=== PATIENT | male | born 1970 | race Two or more races ===

== ENCOUNTER 2017-02-07 05:57 | Emergency (ER) | payer MEDICAID ==
[~2017-02-07] VITALS: Ht 167.6 cm; Wt 58.0 kg
[2017-02-07 07:18] LABS: BASOPHILS % 0.9 % (0.0-2.0); DIFFERENTIAL COMMENT 0; EOSINOPHILS % 4.6 % (0.0-5.0); HEMATOCRIT. 31.3 % (42.0-52.0); HEMOGLOBIN. 9.9 g/dL (14.0-18.0); MEAN CORPUSCULAR HEMOGLOBIN 23.8 pg (28.0-32.0); MEAN CORPUSCULAR HGB CONC 31.7 g/dL (31.0-37.0); MEAN CORPUSCULAR VOLUME 75.2 fL (80.0-94.0); MEAN PLATELET VOLUME 6.3 fl (7.4-10.4); MONOCYTES % 7.8 % (2.0-8.0); NEUTROPHILS % 75.7 % (40.0-76.0); PLATELET 642 x1000/uL (130-400); RED BLOOD CELL COUNT 4.16 mill/uL (4.7-6.1); RED CELL DISTRIBUTION WIDTH 17.8 % (11.6-14.6); WHITE BLOOD COUNT 5.6 x1000/uL (4.5-11.0)
[2017-02-07 07:25] LABS: CHLORIDE 101 mEq/L (98-107); INDEX HEMOLYSI 2 (1-3); INDEX ICTERIC 1 (1-4); INDEX LIPEMIC 1 (1-3)
[2017-02-07 07:33] LABS: ALANINE AMINOTRANSFERASE 18 IU/L (13-61); ALBUMIN 3.5 g/dL (3.4-5.0); ANION GAP 13; CALCIUM 8.9 mg/dL (8.5-10.1); CARBON DIOXIDE 25 mEq/L (21-32); UREA NITROGEN BLOOD 14 mg/dL (7-21); eGFR > 60 mL/min (>60)
[2017-02-07 10:03] VITALS: BP 116/79
== END 2017-02-07 11:58 | disposition home or self-care (01) ==
LOC: ER 08:43
DX: N99.522 Malfunction of incontinent external stoma of urinary tract (principal); C18.9 Malignant neoplasm of colon, unspecified
CPT/HCPCS: 36415; 74176; 80053; 85025; 99285

== ENCOUNTER 2017-02-16 13:04 | Inpatient (IN) | payer MEDICAID, OTHER ==
[~2017-02-16] VITALS: Ht 167.6 cm; Wt 59.9 kg
[2017-02-16] MEDS ORDERED: OXYC-23 PO (13:41)
[2017-02-16] MEDS ORDERED: SULF1TAB48 PO (13:41)
[2017-02-16] MEDS ORDERED: ONDA8TAB9 PO (13:41)
[2017-02-16] MEDS ORDERED: AMOX200S10 PO (13:41)
[2017-02-16] MEDS ORDERED: SODIUM CHLORIDE 0.9% 1000ML BAG (SEPSIS BOLUS) IV ONE (14:30)
[2017-02-16 15:16] LABS: BASOPHILS % 0.8 % (0.0-2.0); DIFFERENTIAL COMMENT 0; EOSINOPHILS % 3.4 % (0.0-5.0); HEMATOCRIT. 29.8 % (42.0-52.0); HEMOGLOBIN. 9.4 g/dL (14.0-18.0); LYMPHOCYTES % 10.2 % (20.0-50.0); MEAN CORPUSCULAR HEMOGLOBIN 23.5 pg (28.0-32.0); MEAN CORPUSCULAR HGB CONC 31.6 g/dL (31.0-37.0); MEAN CORPUSCULAR VOLUME 74.5 fL (80.0-94.0); MEAN PLATELET VOLUME 6.4 fl (7.4-10.4); MONOCYTES % 6.8 % (2.0-8.0); NEUTROPHILS % 78.8 % (40.0-76.0); PLATELET 558 x1000/uL (130-400); RED CELL DISTRIBUTION WIDTH 18.2 % (11.6-14.6); WHITE BLOOD COUNT 5.7 x1000/uL (4.5-11.0)
[2017-02-16 15:19] LABS: CHLORIDE 100 mEq/L (98-107); INDEX HEMOLYSI 1 (1-3); INDEX ICTERIC 1 (1-4); INDEX LIPEMIC 1 (1-3)
[2017-02-16 15:21] LABS: INR 1.1; PARTIAL THROMBOPLASTIN TIME 27.8 sec (24.0-34.0); PROTHROMBIN TIME 11.4 sec
[2017-02-16 15:22] LABS: ALBUMIN 3.2 g/dL (3.4-5.0); ANION GAP 10; CALCIUM 8.8 mg/dL (8.5-10.1); CARBON DIOXIDE 28 mEq/L (21-32)
[2017-02-16 15:28] LABS: ALANINE AMINOTRANSFERASE 13 IU/L (13-61); UREA NITROGEN BLOOD 10 mg/dL (7-21); eGFR > 60 mL/min (>60)
[2017-02-16 15:31] LABS: CLARITY URINE TURBID (CLEAR); COLOR URINE YELLOW (YELLOW); GLUCOSE URINE NEGATIVE (NEGATIVE); KETONES URINE NEGATIVE (NEGATIVE); LEUKOCYTE ESTERASE URINE NEGATIVE (NEGATIVE); NITRITE URINE NEGATIVE (NEGATIVE); OCCULT BLOOD URINE NEGATIVE (NEGATIVE); PH URINE 5.5 (4.5-8.0); PROTEIN URINE TRACE (NEGATIVE); SPECIFIC GRAVITY URINE 1.033 (1.005-1.030)
[2017-02-16 16:13] LABS: MUCUS URINE 1+ /lpf (NONE/TRACE); RBC URINE 0-2 /hpf (0-2); WBC URINE 0-2 /hpf (0-2)
[2017-02-16 16:14] LABS: CALCIUM OXALATE CRYSTALS URINE 2+ /lpf; URIC ACID CRYSTALS URINE 2+ /lpf
[2017-02-16 16:15] LABS: BACTERIA URINE 2+
[2017-02-16 16:16] LABS: SQUAMOUS EPITHELIAL CELL URINE RARE /lpf (RARE/1+)
[2017-02-16] MEDS ORDERED: MORPHINE SULFATE 4 MG/ML CPJ (NOT FOR IM USE) IV ONE (17:30)
[2017-02-16] MEDS ORDERED: ONDANSETRON HCL 4MG/2ML VIAL IV ONE (17:30)
[2017-02-16 21:05] VITALS: BP 102/71
[2017-02-16] MEDS ORDERED: IPRATROPIUM/ALBUTEROL 0.5-3(2.5)MG/3ML NEB INH PRN (22:15)
[2017-02-16] MEDS ORDERED: LORAZEPAM 2MG/ML CPJ IV PRN (22:15)
[2017-02-16] MEDS ORDERED: ACETAMINOPHEN 650MG SUPP PR PRN (22:15)
[2017-02-16] MEDS ORDERED: DIPHENHYDRAMINE 50MG/ML VIAL IV PRN (22:15)
[2017-02-16] MEDS: DEXT 5%/0.45% NACL 1000ML 1,000 ML IV SCH (22:47)
[2017-02-16] MEDS: ENOXAPARIN 40MG/0.4ML SYR SUBCUT SCH (22:48)
[2017-02-16] MEDS ORDERED: ONDANSETRON HCL 4MG/2ML VIAL IV PRN (23:00)
[2017-02-16] MEDS: MORPHINE SULFATE 2 MG/ML CPJ (NOT FOR IM USE) IV PRN (23:05)
[2017-02-17] VITALS: BP 98/68
[2017-02-17 04:00] VITALS: BP 106/76
[2017-02-17] MEDS: MORPHINE SULFATE 2 MG/ML CPJ (NOT FOR IM USE) IV PRN (05:10)
[2017-02-17 08:00] VITALS: BP 108/69
[2017-02-17] MEDS: DEXT 5%/0.45% NACL 1000ML 1,000 ML IV SCH (08:07)
[2017-02-17] MEDS: HYDROMORPHONE HCL/PF 2MG/ML CPJ IV PRN ×3 (09:47→20:26)
[2017-02-17] MEDS: PANTOPRAZOLE SODIUM 40 MG/VIAL IV SCH (09:47)
[2017-02-17] MEDS ORDERED: DIATR MEGLU/DIATRIZOATE SOLN 30ML ONE (14:37)
[2017-02-17 16:00] VITALS: BP 111/76
[2017-02-17 20:00] VITALS: BP 99/76
[2017-02-17 20:19] VITALS: BP 97/67
[2017-02-17] MEDS: ENOXAPARIN 40MG/0.4ML SYR SUBCUT SCH (21:00)
[2017-02-18] VITALS: BP 100/62
[2017-02-18] MEDS: HYDROMORPHONE HCL/PF 2MG/ML CPJ IV PRN ×2 (02:23→08:26)
[2017-02-18] MEDS: DEXT 5%/0.45% NACL 1000ML 1,000 ML IV SCH (03:14)
[2017-02-18 04:00] VITALS: BP 114/77
[2017-02-18 08:00] VITALS: BP 114/76
[2017-02-18] MEDS: PANTOPRAZOLE SODIUM 40 MG/VIAL IV SCH (08:26)
[2017-02-18 12:00] VITALS: BP 99/62
[2017-02-18 13:35] VITALS: BP 99/62
== END 2017-02-18 14:50 | disposition home or self-care (01) | DRG 247 ==
LOC: ER 14:27 → 7WST 18:05
PROVIDERS: ADMIT Internal Medicine; ATTEND Internal Medicine
DX: K56.60 Unspecified intestinal obstruction (principal); E44.1 Mild protein-calorie malnutrition; E87.1 Hypo-osmolality and hyponatremia; K56.7 Ileus, unspecified; N13.30 Unspecified hydronephrosis; E86.0 Dehydration; D63.8 Anemia in other chronic diseases classified elsewhere; Z93.3 Colostomy status; Z93.6 Other artificial openings of urinary tract status; Z68.21 Body mass index [BMI] 21.0-21.9, adult; Z85.038 Personal history of other malignant neoplasm of large intestine
CPT/HCPCS: 36415; 43753; 71010; 74000; 74176; 74250; 80053; 81001; 83605; 85025; 85610; 85730; 87040; 87086; 93005; 96361; 96374; 96375; 99285; C9113; J1170; J1650; J2270; J2405; J3490; J7030; Q9963

== ENCOUNTER 2017-03-06 10:12 | Inpatient (IN) | payer MEDICAID, OTHER ==
[~2017-03-06] VITALS: Ht 167.6 cm; Wt 59.0 kg
[~2017-03-06 10:12] MED LIST: AMOX200S10 PO; ONDA8TAB9 PO; OXYC-23 PO; SULF1TAB48 PO
[2017-03-06] MEDS ORDERED: SODIUM CHLORIDE 0.9% 1,000 ML IV ONE (10:37)
[2017-03-06] MEDS ORDERED: ONDANSETRON HCL 4MG/2ML VIAL IV STA (10:37)
[2017-03-06] MEDS ORDERED: MORPHINE SULFATE 4 MG/ML CPJ (NOT FOR IM USE) IV STA (10:37)
[2017-03-06 11:07] LABS: GLUCOSE URINE TRACE (NEGATIVE); KETONES URINE TRACE (NEGATIVE); LEUKOCYTE ESTERASE URINE 2+ (NEGATIVE); NITRITE URINE NEGATIVE (NEGATIVE); OCCULT BLOOD URINE TRACE (NEGATIVE); PROTEIN URINE 1+ (NEGATIVE); SPECIFIC GRAVITY URINE 1.025 (1.005-1.030); UROBILINOGEN URINE 0.2 E.U./dL (0.2-1.0)
[2017-03-06 11:08] LABS: CLARITY URINE CLOUDY (CLEAR); COLOR URINE DARK YELLOW (YELLOW)
[2017-03-06] MEDS ORDERED: LEVOFLOXACIN 750MG PREMIX 150 ML IV ONE (11:45)
[2017-03-06 12:00] LABS: HEMATOCRIT. 25.1 % (42.0-52.0); HEMOGLOBIN. 8.1 g/dL (14.0-18.0); MEAN CORPUSCULAR HEMOGLOBIN 23.3 pg (28.0-32.0); MEAN CORPUSCULAR VOLUME 72.5 fL (80.0-94.0); MEAN PLATELET VOLUME 7.4 fl (7.4-10.4); PLATELET 357 x1000/uL (130-400); RED BLOOD CELL COUNT 3.47 mill/uL (4.7-6.1); RED CELL DISTRIBUTION WIDTH 18.6 % (11.6-14.6)
[2017-03-06 12:06] LABS: INR 1.2; PARTIAL THROMBOPLASTIN TIME 31.3 sec (24.0-34.0)
[2017-03-06 12:15] LABS: CARBON DIOXIDE 29 mEq/L (21-32); CHLORIDE 101 mEq/L (98-107); TROPONIN I < 0.02 ng/mL (0.00-0.04)
[2017-03-06 12:43] LABS: PLATELET ESTIMATE NORMAL
[2017-03-06 13:55] VITALS: BP 105/70
[2017-03-06] MEDS ORDERED: FLUC200T51 PO (15:45)
[2017-03-06 16:00] VITALS: BP 103/70
[2017-03-06] MEDS: ENOXAPARIN 40MG/0.4ML SYR SUBCUT SCH ×2 (16:30→17:12)
[2017-03-06] MEDS ORDERED: OXYCODONE HCL/ACETAMINOPHEN 5/325MG TABLET PO PRN (16:30)
[2017-03-06] MEDS: DEXT 5%/0.45% NACL 1000ML 1,000 ML IV SCH (17:10)
[2017-03-06] MEDS: HYDROMORPHONE HCL/PF 2MG/ML CPJ IV PRN (17:14)
[2017-03-06] MEDS: ONDANSETRON HCL 4MG/2ML VIAL IV PRN (17:14)
[2017-03-06] MEDS ORDERED: NON FORMULARY PATIENT HOME MED EA XX SCH (17:15)
[2017-03-06 20:00] VITALS: BP 97/68
[2017-03-06] MEDS: ENOXAPARIN 60MG/0.6ML SYR SUBCUT SCH (20:00)
[2017-03-07] VITALS (15 sets, daily range): BP systolic 93–111; BP diastolic 65–81
[2017-03-07] MEDS: ONDANSETRON HCL 4MG/2ML VIAL IV PRN ×4 (00:04→15:12)
[2017-03-07] MEDS: HYDROMORPHONE HCL/PF 2MG/ML CPJ IV PRN ×5 (00:05→19:57)
[2017-03-07 05:27] LABS: HEMATOCRIT. 25.4 % (42.0-52.0); HEMOGLOBIN. 8.2 g/dL (14.0-18.0); MEAN CORPUSCULAR HEMOGLOBIN 23.5 pg (28.0-32.0); MEAN CORPUSCULAR VOLUME 73.3 fL (80.0-94.0); MEAN PLATELET VOLUME 7.2 fl (7.4-10.4); PLATELET 374 x1000/uL (130-400); RED BLOOD CELL COUNT 3.47 mill/uL (4.7-6.1); RED CELL DISTRIBUTION WIDTH 18.7 % (11.6-14.6)
[2017-03-07 06:44] LABS: CARBON DIOXIDE 28 mEq/L (21-32); CHLORIDE 103 mEq/L (98-107)
[2017-03-07 07:55] LABS: PLATELET ESTIMATE NORMAL
[2017-03-07] MEDS: ENOXAPARIN 60MG/0.6ML SYR SUBCUT SCH ×3 (08:00→19:57)
[2017-03-07] MEDS: PANTOPRAZOLE SODIUM 40 MG/VIAL IV SCH (09:23)
[2017-03-07] MEDS: FLUCONAZOLE 200MG TABLET PO SCH ×2 (09:23→09:34)
[2017-03-07] MEDS: DEXT 5%/0.45% NACL 1000ML 1,000 ML IV SCH ×2 (09:28→17:19)
[2017-03-07] MEDS: LEVOFLOXACIN 500MG PREMIX 100 ML IV SCH (10:11)
[2017-03-07 16:51] LABS: CREATINE KINASE 18 IU/L (39-308); TROPONIN I < 0.02 ng/mL (0.00-0.04)
[2017-03-07 16:54] LABS: T4 FREE 1.57 ng/dL (0.76-1.46)
[2017-03-07 17:07] LABS: CREATINE KINASE MB FRACTION < 0.5 ng/mL (0.5-3.6)
[2017-03-08] VITALS (7 sets, daily range): BP systolic 102–118; BP diastolic 70–86
[2017-03-08] MEDS: HYDROMORPHONE HCL/PF 2MG/ML CPJ IV PRN ×6 (00:07→21:03)
[2017-03-08] MEDS: ONDANSETRON HCL 4MG/2ML VIAL IV PRN ×3 (00:08→17:08)
[2017-03-08 00:51] LABS: CREATINE KINASE 20 IU/L (39-308); CREATINE KINASE MB FRACTION 0.8 ng/mL (0.5-3.6); TROPONIN I < 0.02 ng/mL (0.00-0.04)
[2017-03-08 06:42] LABS: HEMATOCRIT. 30.8 % (42.0-52.0); HEMOGLOBIN. 10.2 g/dL (14.0-18.0); MEAN CORPUSCULAR HEMOGLOBIN 25.1 pg (28.0-32.0); MEAN CORPUSCULAR VOLUME 75.8 fL (80.0-94.0); MEAN PLATELET VOLUME 7.4 fl (7.4-10.4); PLATELET 331 x1000/uL (130-400); RED BLOOD CELL COUNT 4.07 mill/uL (4.7-6.1); RED CELL DISTRIBUTION WIDTH 20.1 % (11.6-14.6)
[2017-03-08 07:16] LABS: CARBON DIOXIDE 30 mEq/L (21-32); CHLORIDE 100 mEq/L (98-107); CREATINE KINASE 30 IU/L (39-308); CREATINE KINASE MB FRACTION 0.6 ng/mL (0.5-3.6); TROPONIN I < 0.02 ng/mL (0.00-0.04)
[2017-03-08] MEDS: PANTOPRAZOLE SODIUM 40 MG/VIAL IV SCH (08:54)
[2017-03-08] MEDS: DEXT 5%/0.45% NACL 1000ML 1,000 ML IV SCH (08:54)
[2017-03-08] MEDS: ENOXAPARIN 60MG/0.6ML SYR SUBCUT SCH ×2 (08:55→21:09)
[2017-03-08] MEDS: FLUCONAZOLE 200MG TABLET PO SCH (09:00)
[2017-03-08] MEDS: LEVOFLOXACIN 500MG PREMIX 100 ML IV SCH (09:02)
[2017-03-08] MEDS ORDERED: KCL 20MEQ/100ML PREMIX 100 ML IV SCH (10:00)
[2017-03-08 14:44] LABS: PLATELET ESTIMATE NORMAL
[2017-03-08] MEDS ORDERED: DEXTROSE 50% WATER 50ML SYRINGE IV PRN (18:15)
[2017-03-08] MEDS: BLOOD SUGAR DIAGNOSTIC STRIP TEST SCH (18:21)
[2017-03-08] MEDS: TOTAL PARENTERAL NUTRITION 1,000 ML IV SCH (21:42)
[2017-03-08] MEDS: FAT EMULSIONS 250 ML IV SCH (22:05)
[2017-03-09] VITALS (7 sets, daily range): BP systolic 93–115; BP diastolic 64–80
[2017-03-09] MEDS: BLOOD SUGAR DIAGNOSTIC STRIP TEST SCH ×5 (00:31→23:40)
[2017-03-09] MEDS: INSULIN LISPRO 100 UNITS/ML SUBCUT SCH ×5 (00:41→23:44)
[2017-03-09] MEDS: HYDROMORPHONE HCL/PF 2MG/ML CPJ IV PRN ×5 (00:42→17:51)
[2017-03-09 06:28] LABS: HEMATOCRIT. 31.4 % (42.0-52.0); HEMOGLOBIN. 10.5 g/dL (14.0-18.0); MEAN CORPUSCULAR HEMOGLOBIN 25.2 pg (28.0-32.0); MEAN CORPUSCULAR VOLUME 75.7 fL (80.0-94.0); MEAN PLATELET VOLUME 7.3 fl (7.4-10.4); PLATELET 321 x1000/uL (130-400); RED BLOOD CELL COUNT 4.15 mill/uL (4.7-6.1); RED CELL DISTRIBUTION WIDTH 19.8 % (11.6-14.6)
[2017-03-09] MEDS ORDERED: HYDROMORPHONE HCL/PF 2MG/ML CPJ IV PRN (07:00)
[2017-03-09 07:06] LABS: CARBON DIOXIDE 28 mEq/L (21-32); CHLORIDE 96 mEq/L (98-107)
[2017-03-09] MEDS: FAMOTIDINE 20MG/2ML VIAL IV SCH ×2 (09:09→20:44)
[2017-03-09] MEDS: LEVOFLOXACIN 500MG PREMIX 100 ML IV SCH (09:09)
[2017-03-09] MEDS: ENOXAPARIN 60MG/0.6ML SYR SUBCUT SCH ×2 (09:09→20:44)
[2017-03-09] MEDS: TOTAL PARENTERAL NUTRITION 1,000 ML IV SCH ×2 (10:59→23:43)
[2017-03-09 11:01] LABS: PHOSPHORUS 2.1 mg/dL (2.5-4.9)
[2017-03-09] MEDS: ONDANSETRON HCL 4MG/2ML VIAL IV PRN ×2 (13:50→22:15)
[2017-03-09 19:50] LABS: PLATELET ESTIMATE NORMAL
[2017-03-10] VITALS (8 sets, daily range): BP systolic 95–111; BP diastolic 64–77
[2017-03-10] MEDS: HYDROMORPHONE HCL/PF 2MG/ML CPJ IV PRN ×6 (01:58→22:06)
[2017-03-10] MEDS: INSULIN LISPRO 100 UNITS/ML SUBCUT SCH ×3 (06:43→18:02)
[2017-03-10] MEDS: BLOOD SUGAR DIAGNOSTIC STRIP TEST SCH ×3 (06:44→18:03)
[2017-03-10 07:00] LABS: HEMOGLOBIN. 9.9 g/dL (14.0-18.0); MEAN CORPUSCULAR HEMOGLOBIN 24.7 pg (28.0-32.0); MEAN CORPUSCULAR VOLUME 75.1 fL (80.0-94.0); MEAN PLATELET VOLUME 7.3 fl (7.4-10.4); PLATELET 251 x1000/uL (130-400); RED BLOOD CELL COUNT 3.99 mill/uL (4.7-6.1); RED CELL DISTRIBUTION WIDTH 20.3 % (11.6-14.6)
[2017-03-10 07:27] LABS: CARBON DIOXIDE 28 mEq/L (21-32); CHLORIDE 98 mEq/L (98-107)
[2017-03-10 08:29] LABS: PLATELET ESTIMATE NORMAL
[2017-03-10] MEDS: FAMOTIDINE 20MG/2ML VIAL IV SCH ×2 (08:46→21:08)
[2017-03-10] MEDS: ENOXAPARIN 60MG/0.6ML SYR SUBCUT SCH ×2 (08:47→21:08)
[2017-03-10] MEDS: ONDANSETRON HCL 4MG/2ML VIAL IV PRN ×3 (09:01→22:05)
[2017-03-10] MEDS: LEVOFLOXACIN 500MG PREMIX 100 ML IV SCH (09:05)
[2017-03-10] MEDS: TOTAL PARENTERAL NUTRITION 1,000 ML IV SCH (13:20)
[2017-03-11] VITALS (7 sets, daily range): BP systolic 96–106; BP diastolic 66–74
[2017-03-11] MEDS: INSULIN LISPRO 100 UNITS/ML SUBCUT SCH ×5 (00:03→23:31)
[2017-03-11] MEDS: BLOOD SUGAR DIAGNOSTIC STRIP TEST SCH ×5 (00:04→23:31)
[2017-03-11] MEDS: HYDROMORPHONE HCL/PF 2MG/ML CPJ IV PRN ×6 (02:10→22:11)
[2017-03-11] MEDS: ONDANSETRON HCL 4MG/2ML VIAL IV PRN ×2 (02:13→17:32)
[2017-03-11] MEDS: TOTAL PARENTERAL NUTRITION 1,000 ML IV SCH ×2 (02:17→16:19)
[2017-03-11] MEDS: FAMOTIDINE 20MG/2ML VIAL IV SCH ×2 (08:25→22:09)
[2017-03-11] MEDS: ENOXAPARIN 60MG/0.6ML SYR SUBCUT SCH ×2 (08:27→22:09)
[2017-03-11] MEDS: LEVOFLOXACIN 500MG PREMIX 100 ML IV SCH (10:12)
[2017-03-11] MEDS: FAT EMULSIONS 250 ML IV SCH (22:10)
[2017-03-12] VITALS: BP 100/60
[2017-03-12] MEDS: HYDROMORPHONE HCL/PF 2MG/ML CPJ IV PRN ×2 (02:01→06:06)
[2017-03-12] MEDS: ONDANSETRON HCL 4MG/2ML VIAL IV PRN (02:02)
[2017-03-12 03:19] VITALS: BP_SYST 108; BP_SYST 97; BP_DIAS 68; BP_DIAS 77
[2017-03-12 04:00] VITALS: BP 107/77
[2017-03-12] MEDS: INSULIN LISPRO 100 UNITS/ML SUBCUT SCH (06:00)
[2017-03-12] MEDS: BLOOD SUGAR DIAGNOSTIC STRIP TEST SCH (06:06)
[2017-03-12 08:00] VITALS: BP 143/81
== END 2017-03-12 08:10 | disposition home or self-care (01) | DRG 463 ==
LOC: ER 10:16 → 8WST 12:39 → 8EST 03-09 23:44 → 8WST 03-09 23:56
PROVIDERS: ADMIT Internal Medicine; ATTEND Internal Medicine
PROC: 30233N1 Transfusion of Nonautologous Red Blood Cells into Peripheral Vein, Percutaneous Approach (ICD-10-PCS; 2017-03-07)
PROC: 3E0336Z Introduction of Nutritional Substance into Peripheral Vein, Percutaneous Approach (ICD-10-PCS; principal; 2017-03-08)
DX: N39.0 Urinary tract infection, site not specified (principal); R64 Cachexia; K56.60 Unspecified intestinal obstruction; N17.9 Acute kidney failure, unspecified; E46 Unspecified protein-calorie malnutrition; C78.6 Secondary malignant neoplasm of retroperitoneum and peritoneum; C79.89 Secondary malignant neoplasm of other specified sites; R18.8 Other ascites; N13.30 Unspecified hydronephrosis; C19 Malignant neoplasm of rectosigmoid junction; D63.0 Anemia in neoplastic disease; N13.9 Obstructive and reflux uropathy, unspecified; J98.11 Atelectasis; D50.9 Iron deficiency anemia, unspecified; E86.0 Dehydration; Z90.49 Acquired absence of other specified parts of digestive tract; Z92.21 Personal history of antineoplastic chemotherapy; Z93.3 Colostomy status; Z93.6 Other artificial openings of urinary tract status; Z68.21 Body mass index [BMI] 21.0-21.9, adult
CPT/HCPCS: 36415; 36430; 71010; 74000; 74176; 76700; 76770; 80048; 80053; 80061; 81001; 82550; 82553; 82962; 83036; 83690; 83735; 83880; 84100; 84439; 84443; 84484; 85025; 85379; 85610; 85730; 86850; 86900; 86920; 93005; 93306; 93970; 96361; 96365; 96375; 99285; C9113; J1170; J1650; J1815; J1956; J2270; J2405; J3480; J3490; J7030; J7040; J7050; P9016

== ENCOUNTER 2017-03-28 15:57 | Inpatient (IN) | payer OTHER ==
[~2017-03-28] VITALS: Ht 167.6 cm; Wt 54.4 kg
[~2017-03-28 15:57] MED LIST changes: +FLUC200T51 PO; -ONDA8TAB9 PO; -OXYC-23 PO
[2017-03-28] MEDS ORDERED: SODIUM CHLORIDE 0.9% 1,000 ML IV ONE (16:48)
[2017-03-28] MEDS ORDERED: METOCLOPRAMIDE HCL 10MG/2ML VIAL IV ONE ×2 (17:00→21:45)
[2017-03-28] MEDS ORDERED: SODIUM CHLORIDE 0.9% 1000ML BAG (SEPSIS BOLUS) IV ONE (17:00)
[2017-03-28] MEDS ORDERED: KETOROLAC 30MG/ML VIAL IV ONE (17:15)
[2017-03-28 17:17] LABS: CLARITY URINE TURBID (CLEAR); COLOR URINE DARK YELLOW (YELLOW); GLUCOSE URINE NEGATIVE (NEGATIVE); KETONES URINE NEGATIVE (NEGATIVE); LEUKOCYTE ESTERASE URINE 3+ (NEGATIVE); NITRITE URINE NEGATIVE (NEGATIVE); OCCULT BLOOD URINE 3+ (NEGATIVE); PROTEIN URINE 2+ (NEGATIVE); SPECIFIC GRAVITY URINE 1.018 (1.005-1.030); UROBILINOGEN URINE 0.2 E.U./dL (0.2-1.0)
[2017-03-28 17:37] LABS: HEMATOCRIT. 34.4 % (42.0-52.0); HEMOGLOBIN. 11.8 g/dL (14.0-18.0); MEAN CORPUSCULAR HEMOGLOBIN 25.3 pg (28.0-32.0); MEAN CORPUSCULAR VOLUME 73.7 fL (80.0-94.0); PLATELET 356 x1000/uL (130-400); RED BLOOD CELL COUNT 4.67 mill/uL (4.7-6.1); RED CELL DISTRIBUTION WIDTH 22.3 % (11.6-14.6)
[2017-03-28 17:41] LABS: INR 1.1; PROTHROMBIN TIME 11.4 sec
[2017-03-28] MEDS ORDERED: MORPHINE SULFATE 4 MG/ML CPJ (NOT FOR IM USE) IV ONE (17:45)
[2017-03-28 17:49] LABS: CHLORIDE 53 mEq/L (98-107)
[2017-03-28 18:13] LABS: CARBON DIOXIDE 50 mEq/L (21-32)
[2017-03-28] MEDS ORDERED: PIPERACILLIN SODIUM/TAZOBACTAM 4.5 G in DEXT 5% WATER 100 ML IV SCH (18:30)
[2017-03-28] MEDS ORDERED: VANCOMYCIN 1 G PREMIX 200 ML IV SCH (18:30)
[2017-03-28 19:00] LABS: ATYPICAL LYMPHOCYTES 1; PLATELET ESTIMATE NORMAL
[2017-03-28] MEDS ORDERED: POTASSIUM CHLORIDE INJ 40 MEQ in DEXT 5% WATER 250 ML IV ONE (19:00)
[2017-03-28] MEDS ORDERED: GENTAMICIN 60MG PREMIX 50 ML IV SCH (19:15)
[2017-03-28] MEDS ORDERED: ONDANSETRON HCL 4MG/2ML VIAL IV ONE (19:15)
[2017-03-28] MEDS ORDERED: DIPHENHYDRAMINE 50MG/ML VIAL IV PRN (22:15)
[2017-03-28] MEDS ORDERED: MAGNESIUM/ALUMINUM HYDROXIDE/SIMETHICONE 30ML UDC PO PRN (22:15)
[2017-03-28] MEDS ORDERED: GUAIFENESIN 200MG/10ML SUGAR FREE UDC PO PRN (22:15)
[2017-03-28] MEDS ORDERED: CLONIDINE 0.1MG TABLET PO PRN (22:15)
[2017-03-28] MEDS ORDERED: IPRATROPIUM/ALBUTEROL 0.5-3(2.5)MG/3ML NEB INH PRN (22:15)
[2017-03-28] MEDS ORDERED: NA PHOS,M-B/NA PHOS,DI-BA ENEMA 118ML PR PRN (22:15)
[2017-03-28] MEDS ORDERED: ACETAMINOPHEN 325MG TABLET PO PRN (22:15)
[2017-03-28] MEDS ORDERED: HYDROCODONE/ACETAMINOPHEN 5/325MG TABLET PO PRN (22:15)
[2017-03-28] MEDS ORDERED: DOCUSATE SODIUM 100MG CAPSULE PO PRN (22:15)
[2017-03-29] VITALS (13 sets, daily range): BP systolic 93–128; BP diastolic 43–82
[2017-03-29] MEDS: HYDROMORPHONE HCL/PF 2MG/ML CPJ IV PRN ×5 (00:20→23:52)
[2017-03-29] MEDS: ONDANSETRON HCL 4MG/2ML VIAL IV PRN ×2 (02:22→20:35)
[2017-03-29] MEDS: DEXT 5%/0.45% NACL KCL 10MEQ/L 1,000 ML IV SCH ×2 (03:46→13:41)
[2017-03-29] MEDS: PIPERACILLIN/TAZ 3.375G PREMIX 50 ML IV SCH ×3 (03:46→22:58)
[2017-03-29] MEDS: METRONIDAZOLE 500 MG PREMIX 100 ML IV SCH ×2 (05:35→13:52)
[2017-03-29 06:47] LABS: HEMOGLOBIN. 11.1 g/dL (14.0-18.0); MEAN CORPUSCULAR HEMOGLOBIN 25.6 pg (28.0-32.0); MEAN CORPUSCULAR VOLUME 74.1 fL (80.0-94.0); MEAN PLATELET VOLUME 8.3 fl (7.4-10.4); PLATELET 295 x1000/uL (130-400); RED BLOOD CELL COUNT 4.32 mill/uL (4.7-6.1); RED CELL DISTRIBUTION WIDTH 22.4 % (11.6-14.6)
[2017-03-29 07:09] LABS: CARBON DIOXIDE 37 mEq/L (21-32); CHLORIDE 60 mEq/L (98-107); HDL CHOLESTEROL 14 mg/dL (40-59); LDL CHOLESTEROL 178 mg/dL (5-100); TROPONIN I < 0.02 ng/mL (0.00-0.04)
[2017-03-29] MEDS ORDERED: ENOXAPARIN 40MG/0.4ML SYR SUBCUT SCH (09:00)
[2017-03-29 09:25] LABS: PLATELET ESTIMATE NORMAL
[2017-03-29] MEDS ORDERED: VANCOMYCIN 1 G PREMIX 200 ML IV SCH (15:00)
[2017-03-29 15:53] LABS: TROPONIN I < 0.02 ng/mL (0.00-0.04)
[2017-03-29] MEDS: POTASSIUM CHLORIDE INJ 30 MEQ in DEXT 5%/0.9% NACL 1,000 ML IV SCH (17:22)
[2017-03-29] MEDS ORDERED: POTASSIUM CHLORIDE INJ 30 MEQ in DEXT 5%/0.9% NACL 1,000 ML IV SCH (17:30)
[2017-03-29] MEDS ORDERED: WARFARIN SODIUM 5MG TABLET PO NR (18:00)
[2017-03-29] MEDS ORDERED: SODIUM CHLORIDE 3% 500ML IV SOLN IV ONE (21:30)
[2017-03-29] MEDS ORDERED: SODIUM CHLORIDE 3% 250 ML IV NR (22:30)
[2017-03-30] VITALS (16 sets, daily range): BP systolic 95–128; BP diastolic 31–78
[2017-03-30] MEDS: ONDANSETRON HCL 4MG/2ML VIAL IV PRN ×2 (02:48→21:40)
[2017-03-30] MEDS: HYDROMORPHONE HCL/PF 2MG/ML CPJ IV PRN ×3 (02:49→20:35)
[2017-03-30] MEDS: PIPERACILLIN/TAZ 3.375G PREMIX 50 ML IV SCH ×2 (05:47→14:00)
[2017-03-30 07:18] LABS: D-DIMER 3.48 mg/L FEU (<0.50); INR 1.2; PROTHROMBIN TIME 12.8 sec
[2017-03-30] MEDS ORDERED: POTASSIUM CHLORIDE 20MEQ TABLET SR PO SCH (08:30)
[2017-03-30] MEDS: ENOXAPARIN 60MG/0.6ML SYR SUBCUT SCH (08:43)
[2017-03-30] MEDS: METOCLOPRAMIDE HCL 10MG/2ML VIAL IV PRN ×3 (08:44→20:06)
[2017-03-30] MEDS ORDERED: ENOXAPARIN 30MG/0.3ML SYR SUBCUT SCH (09:00)
[2017-03-30 09:32] LABS: HEMATOCRIT. 30.4 % (42.0-52.0); HEMOGLOBIN. 10.3 g/dL (14.0-18.0); MEAN CORPUSCULAR HEMOGLOBIN 25.2 pg (28.0-32.0); PLATELET 262 x1000/uL (130-400); RED CELL DISTRIBUTION WIDTH 22.5 % (11.6-14.6)
[2017-03-30 09:33] LABS: CHLORIDE 62 mEq/L (98-107); PHOSPHORUS 6.4 mg/dL (2.5-4.9); TROPONIN I < 0.02 ng/mL (0.00-0.04)
[2017-03-30 09:43] LABS: CARBON DIOXIDE 41 mEq/L (21-32)
[2017-03-30 10:13] LABS: PLATELET ESTIMATE NORMAL
[2017-03-30] MEDS: POTASSIUM CHLORIDE INJ 30 MEQ in DEXT 5%/0.9% NACL 1,000 ML IV SCH (11:27)
[2017-03-30] MEDS: LORAZEPAM 2MG/ML CPJ IV PRN (11:27)
[2017-03-30] MEDS ORDERED: VANCOMYCIN 1 G PREMIX 200 ML IV NR (16:00)
[2017-03-30] MEDS ORDERED: WARFARIN SODIUM 5MG TABLET PO NR (18:00)
[2017-03-30] MEDS: PIPERACILLIN/TAZ 2.25G PREMIX 50 ML IV SCH (21:28)
[2017-03-31] VITALS (12 sets, daily range): BP systolic 93–108; BP diastolic 59–73
[2017-03-31] MEDS ORDERED: BLOOD SUGAR DIAGNOSTIC STRIP TEST SCH
[2017-03-31] MEDS: HYDROMORPHONE HCL/PF 2MG/ML CPJ IV PRN ×2 (01:34→09:19)
[2017-03-31] MEDS: POTASSIUM CHLORIDE INJ 30 MEQ in DEXT 5%/0.9% NACL 1,000 ML IV SCH ×2 (04:52→20:15)
[2017-03-31] MEDS: PIPERACILLIN/TAZ 2.25G PREMIX 50 ML IV SCH ×3 (05:17→21:14)
[2017-03-31 06:54] LABS: INR 1.2; PROTHROMBIN TIME 12.8 sec
[2017-03-31 06:56] LABS: HEMATOCRIT. 28.3 % (42.0-52.0); HEMOGLOBIN. 9.7 g/dL (14.0-18.0); MEAN CORPUSCULAR HEMOGLOBIN 24.9 pg (28.0-32.0); MEAN CORPUSCULAR VOLUME 72.9 fL (80.0-94.0); MEAN PLATELET VOLUME 8.6 fl (7.4-10.4); PLATELET 282 x1000/uL (130-400); RED BLOOD CELL COUNT 3.88 mill/uL (4.7-6.1); RED CELL DISTRIBUTION WIDTH 21.8 % (11.6-14.6)
[2017-03-31] MEDS: ENOXAPARIN 60MG/0.6ML SYR SUBCUT SCH (09:00)
[2017-03-31] MEDS ORDERED: SODIUM CHLORIDE 3% 250 ML IV SCH (11:30)
[2017-03-31] MEDS ORDERED: SODIUM CHLORIDE 3% 250 ML IV NR (14:30)
[2017-03-31 16:12] LABS: PLATELET ESTIMATE NORMAL
[2017-03-31 17:19] LABS: TOTAL IRON BINDING CAPACITY 189 ug/dL (250-450)
[2017-03-31] MEDS ORDERED: WARFARIN SODIUM 5MG TABLET PO NR (18:00)
[2017-03-31] MEDS: ONDANSETRON HCL 4MG/2ML VIAL IV PRN (20:10)
[2017-03-31] MEDS: TOTAL PARENTERAL NUTRITION 1,000 ML IV SCH (20:16)
[2017-03-31] MEDS: FAT EMULSIONS 500 ML IV SCH (20:17)
[2017-04-01] VITALS (77 sets, daily range): BP systolic 69–125; BP diastolic 40–73
[2017-04-01] MEDS: BLOOD SUGAR DIAGNOSTIC STRIP TEST SCH ×7 (00:39→23:59)
[2017-04-01] MEDS: HYDROMORPHONE HCL/PF 2MG/ML CPJ IV PRN ×4 (00:46→22:35)
[2017-04-01] MEDS ORDERED: DEXTROSE 50% WATER 50ML SYRINGE IV PRN (01:15)
[2017-04-01] MEDS ORDERED: INSULIN REGULAR (HUMULIN R) UD 100 UNITS/ML SYR SUBCUT PRN (01:15)
[2017-04-01] MEDS ORDERED: INSULIN LISPRO 100 UNITS/ML SUBCUT ONE (01:30)
[2017-04-01] MEDS: PIPERACILLIN/TAZ 2.25G PREMIX 50 ML IV SCH ×3 (05:10→21:20)
[2017-04-01] MEDS: ONDANSETRON HCL 4MG/2ML VIAL IV PRN ×2 (05:15→13:25)
[2017-04-01] MEDS: INSULIN LISPRO 100 UNITS/ML SUBCUT SCH ×4 (05:41→18:55)
[2017-04-01 06:36] LABS: INR 1.2; PROTHROMBIN TIME 12.7 sec
[2017-04-01 07:10] LABS: HEMATOCRIT. 24.4 % (42.0-52.0); HEMOGLOBIN. 8.7 g/dL (14.0-18.0); MEAN CORPUSCULAR HEMOGLOBIN 26.3 pg (28.0-32.0); MEAN CORPUSCULAR VOLUME 74.2 fL (80.0-94.0); MEAN PLATELET VOLUME 8.6 fl (7.4-10.4); PLATELET 304 x1000/uL (130-400); RED BLOOD CELL COUNT 3.29 mill/uL (4.7-6.1); RED CELL DISTRIBUTION WIDTH 21.8 % (11.6-14.6)
[2017-04-01] MEDS ORDERED: INSULIN LISPRO 100 UNITS/ML SUBCUT SCH (08:00)
[2017-04-01] MEDS ORDERED: SODIUM CHLORIDE 0.9% 1,000 ML IV SCH (08:15)
[2017-04-01] MEDS ORDERED: SODIUM CHLORIDE 3% 500ML IV SOLN IV ONE (09:15)
[2017-04-01] MEDS ORDERED: INSULIN DETEMIR UD 100 UNITS/ML SYR SUBCUT SCH (10:00)
[2017-04-01] MEDS: TOTAL PARENTERAL NUTRITION 1,000 ML IV SCH ×2 (10:25→21:26)
[2017-04-01 10:51] LABS: PLATELET ESTIMATE NORMAL
[2017-04-01] MEDS: PHENYLEPHRINE 20 MG in DEXT 5% WATER 498 ML IV PRN ×3 (10:53→16:51)
[2017-04-01] MEDS ORDERED: SODIUM CHLORIDE 3% 300 ML IV ONE (11:00)
[2017-04-01] MEDS ORDERED: PROCHLORPERAZINE MALEATE 10MG TABLET PO PRN (15:00)
[2017-04-01] MEDS ORDERED: TOTAL PARENTERAL NUTRITION 1,000 ML IV SCH (15:15)
[2017-04-01] MEDS ORDERED: PHENYLEPHRINE 40 MG in DEXT 5% WATER 246 ML IV PRN (17:30)
[2017-04-01] MEDS ORDERED: INSULIN LISPRO 100 UNITS/ML SUBCUT PRN (18:45)
[2017-04-01] MEDS ORDERED: INSULIN DETEMIR UD 100 UNITS/ML SYR SUBCUT NR ×2 (21:00)
[2017-04-01] MEDS: PHENYLEPHRINE 80 MG in DEXT 5% WATER 500 ML IV PRN (22:35)
[2017-04-02] VITALS (98 sets, daily range): BP systolic 52–119; BP diastolic 34–73
[2017-04-02] MEDS ORDERED: INSULIN LISPRO 100 UNITS/ML SUBCUT SCH
[2017-04-02] MEDS ORDERED: BLOOD SUGAR DIAGNOSTIC STRIP TEST SCH
[2017-04-02] MEDS ORDERED: INSULIN LISPRO 100 UNITS/ML SUBCUT PRN
[2017-04-02] MEDS: INSULIN LISPRO 100 UNITS/ML SUBCUT SCH ×7 (00:16→23:42)
[2017-04-02] MEDS: HYDROMORPHONE HCL/PF 2MG/ML CPJ IV PRN ×7 (00:39→23:47)
[2017-04-02] MEDS: LORAZEPAM 2MG/ML CPJ IV PRN (02:16)
[2017-04-02] MEDS: NOREPINEPHRINE 8 MG in DEXT 5% WATER 242 ML IV PRN ×2 (02:18→10:46)
[2017-04-02 03:02] LABS: BG BASE EXCESS 21.7 mmol/L (-2.0-2.0); BG CARBOXYHEMOGLOBIN 0.6 % (0.5-1.5); BG DEOXYHEMOGLOBIN 1.4 % (0.0-5.0); BG FRACTION INSPIRED OXYGEN 40; BG HCO3 ACT 47.2 mmol/L (22.0-26.0); BG METHEMOGLOBIN 0.2 % (0.0-1.5); BG OXYGEN SATURATION 98.6 % (92.0-98.5); BG OXYHEMOGLOBIN 97.8 % (94.0-97.0); BG PH 7.528 (7.350-7.450); BG PO2 138.3 mmHg (75.0-100.0); BG SAMPLE SITE RIGHT RADIAL; BG TOTAL HEMOGLOBIN 9.8 g/dL (12.0-18.0); BG VENT MODE MASK - BIPAP
[2017-04-02] MEDS: BLOOD SUGAR DIAGNOSTIC STRIP TEST SCH ×6 (04:18→23:42)
[2017-04-02] MEDS: PIPERACILLIN/TAZ 2.25G PREMIX 50 ML IV SCH ×3 (05:30→22:30)
[2017-04-02] MEDS: ACETAMINOPHEN 650MG SUPP PR PRN ×2 (05:39→16:02)
[2017-04-02] MEDS: PHENYLEPHRINE 80 MG in DEXT 5% WATER 500 ML IV PRN ×3 (06:11→22:30)
[2017-04-02 06:22] LABS: HEMATOCRIT. 25.8 % (42.0-52.0); HEMOGLOBIN. 8.8 g/dL (14.0-18.0); MEAN CORPUSCULAR HEMOGLOBIN 24.7 pg (28.0-32.0); MEAN CORPUSCULAR VOLUME 72.4 fL (80.0-94.0); MEAN PLATELET VOLUME 8.9 fl (7.4-10.4); PLATELET 305 x1000/uL (130-400); RED BLOOD CELL COUNT 3.56 mill/uL (4.7-6.1); RED CELL DISTRIBUTION WIDTH 20.9 % (11.6-14.6)
[2017-04-02 06:40] LABS: CARBON DIOXIDE 39 mEq/L (21-32); CHLORIDE 53 mEq/L (98-107)
[2017-04-02 07:41] LABS: PLATELET ESTIMATE NORMAL
[2017-04-02] MEDS ORDERED: SODIUM CHLORIDE 0.9% 250 ML IV NR (08:45)
[2017-04-02] MEDS ORDERED: SODIUM CHLORIDE 0.9% 500 ML IV ONE (08:45)
[2017-04-02] MEDS: METOCLOPRAMIDE HCL 10MG/2ML VIAL IV PRN (09:04)
[2017-04-02] MEDS: TOTAL PARENTERAL NUTRITION 1,000 ML IV SCH (10:13)
[2017-04-02] MEDS: INSULIN DETEMIR UD 100 UNITS/ML SYR SUBCUT SCH (10:14)
[2017-04-02] MEDS: FAT EMULSIONS 500 ML IV SCH (10:49)
[2017-04-02] MEDS ORDERED: SODIUM CHLORIDE 3% 500 ML IV NR (11:00)
[2017-04-02] MEDS: ONDANSETRON HCL 4MG/2ML VIAL IV PRN (14:01)
[2017-04-02] MEDS ORDERED: FLUCONAZOLE 200 MG/100ML BAG 100 ML IV SCH (15:00)
[2017-04-02] MEDS: NOREPINEPHRINE 16 MG in DEXT 5% WATER 234 ML IV PRN (15:38)
[2017-04-02 20:11] LABS: HEMATOCRIT 19.5 % (42.0-52.0)
[2017-04-02 20:12] LABS: HEMOGLOBIN 7.8 g/dL (14.0-18.0)
[2017-04-02] MEDS ORDERED: TOTAL PARENTERAL NUTRITION 1,000 ML IV SCH (21:00)
[2017-04-03] VITALS (49 sets, daily range): BP systolic 64–122; BP diastolic 20–83
[2017-04-03] MEDS: NOREPINEPHRINE 16 MG in DEXT 5% WATER 234 ML IV PRN ×2 (00:24→09:43)
[2017-04-03] MEDS: HYDROMORPHONE HCL/PF 2MG/ML CPJ IV PRN ×4 (02:02→08:22)
[2017-04-03] MEDS: BLOOD SUGAR DIAGNOSTIC STRIP TEST SCH ×2 (03:44→08:12)
[2017-04-03] MEDS: INSULIN LISPRO 100 UNITS/ML SUBCUT SCH ×2 (03:44→08:15)
[2017-04-03] MEDS: PIPERACILLIN/TAZ 2.25G PREMIX 50 ML IV SCH (05:35)
[2017-04-03] MEDS: PHENYLEPHRINE 80 MG in DEXT 5% WATER 500 ML IV PRN (07:00)
[2017-04-03] MEDS: ONDANSETRON HCL 4MG/2ML VIAL IV PRN (08:12)
[2017-04-03] MEDS: INSULIN DETEMIR UD 100 UNITS/ML SYR SUBCUT SCH (09:09)
[2017-04-03 09:37] LABS: HEMATOCRIT. 31.3 % (42.0-52.0); HEMOGLOBIN. 10.9 g/dL (14.0-18.0); MEAN CORPUSCULAR HEMOGLOBIN 26.3 pg (28.0-32.0); MEAN CORPUSCULAR VOLUME 75.5 fL (80.0-94.0); MEAN PLATELET VOLUME 9.1 fl (7.4-10.4); PLATELET 246 x1000/uL (130-400); RED BLOOD CELL COUNT 4.14 mill/uL (4.7-6.1); RED CELL DISTRIBUTION WIDTH 22.1 % (11.6-14.6)
[2017-04-03] MEDS: ACETAMINOPHEN 650MG SUPP PR PRN (10:29)
[2017-04-03 11:19] LABS: PLATELET ESTIMATE NORMAL
[2017-04-05] MEDS ORDERED: FAT EMULSIONS 500 ML IV SCH (21:00)
== END 2017-04-03 10:45 | disposition expired | DRG 720 ==
LOC: ER 17:40 → 5EST 19:33 → ENRESERV 21:38 → CVICU 04-01 09:50
PROVIDERS: ADMIT Internal Medicine; ATTEND Internal Medicine
PROC: 30233N1 Transfusion of Nonautologous Red Blood Cells into Peripheral Vein, Percutaneous Approach (ICD-10-PCS; principal; 2017-04-02)
PROC: 5A09357 Assistance with Respiratory Ventilation, Less than 24 Consecutive Hours, Continuous Positive Airway Pressure (ICD-10-PCS; 2017-04-02)
DX: A41.9 Sepsis, unspecified organism (principal); R65.21 Severe sepsis with septic shock; G93.41 Metabolic encephalopathy; E43 Unspecified severe protein-calorie malnutrition; N17.9 Acute kidney failure, unspecified; D70.1 Agranulocytosis secondary to cancer chemotherapy; K92.2 Gastrointestinal hemorrhage, unspecified; R17 Unspecified jaundice; E87.1 Hypo-osmolality and hyponatremia; N13.9 Obstructive and reflux uropathy, unspecified; C18.9 Malignant neoplasm of colon, unspecified; E87.6 Hypokalemia; D64.9 Anemia, unspecified; N39.0 Urinary tract infection, site not specified; R50.81 Fever presenting with conditions classified elsewhere; T45.1X5A Adverse effect of antineoplastic and immunosuppressive drugs, initial encounter; D70.9 Neutropenia, unspecified; E11.65 Type 2 diabetes mellitus with hyperglycemia; I82.403 Acute embolism and thrombosis of unspecified deep veins of lower extremity, bilateral; R31.0 Gross hematuria; Z66 Do not resuscitate; Z22.322 Carrier or suspected carrier of Methicillin resistant Staphylococcus aureus; Z85.038 Personal history of other malignant neoplasm of large intestine; Z90.49 Acquired absence of other specified parts of digestive tract; Z93.3 Colostomy status; Z93.6 Other artificial openings of urinary tract status; Z68.1 Body mass index [BMI] 19.9 or less, adult
CPT/HCPCS: 36415; 36600; 71010; 74000; 76770; 80048; 80053; 80061; 80202; 81001; 82375; 82805; 82962; 83540; 83550; 83605; 83690; 83735; 83880; 83930; 84100; 84484; 85014; 85018; 85025; 85379; 85610; 86850; 86900; 86920; 87040; 87086; 87106; 93005; 93306; 93970; 94660; 96361; 96365; 96367; 96375; 96376; 99291; A6261; J1170; J1450; J1580; J1650; J1815; J1885; J2060; J2270; J2370; J2405; J2543; J2765; J3370; J3480; J3490; J7030; J7040; J7042; J7050; J7060; P9016; Q0164